=== PATIENT | male | born 1970 | race Caucasian/White ===

== ENCOUNTER 2021-06-20 02:02 | Emergency (ER) | payer OTHER, SELFPAY ==
[2021-06-20] VITALS (34 sets, daily range): BP systolic 102–140; BP diastolic 61–96; PULSE 59–85; RESP 8–18; TEMP 36.3; O2SAT 95–100
--- NOTE | 2021-06-20 02:00 | RT.EKG_ITS ---
APPROVED REPORT Exam: Resting ECG Reason for Exam: CHEST PAIN Patient Location: E HR:82 bpm ECG Measurements Heart Rate 82 AXIS VA 167 P 29 QRSd 81 QRS 7 QT 369 T 48 QTc 429 Conclusion Sinus rhythm...normal P axis, V-rate 60- 99 Atrial premature complexes...SV complexes w/ short R-R intvls [id number]: Rate 82, sinus rhythm with intermittent premature atrial complexes, no significant ST ellyn vation or depression. No STEMI
--- NOTE | 2021-06-20 02:14 | ED.GENADUL_ITS ---
Discharge Plan Disposition Patient Disposition: HOME Condition: Good Discharge Details Clinical Impression: Atrial premature contractions, Dysfunction of thyroid Primary Care Provider: Yuki,Local ED Provider: Andrae Magaña Home Meds and New Rx's Prescriptions: New atenolol 25 mg tablet 25 mg PO DAILY Qty: 30 RF: 0 Continued methimazole 20 mg Tablet 30 mg PO DAILY RF: 0 Discharge Instructions Instructions: Graves Disease (ED) Additional Instructions: At this time he is thankfully showed no evidence of thyroid storm. Your TSH level is elevated at 36.6, and your T4 level (which is your active thyroid metabolite) is slightly low at 0.69. Please follow-up closely with your primary care provider and [employer] for further titration and management of your thyroid medications. Please take the atenolol every day as directed to help manage your symptoms of palpitations. If you notice any worsening of your sy mptoms, or any new symptoms such as vomiting, diarrhea, fever, chills, shortness of breath, chest pain, numbness, weakness, or fainting , please return immediately to the emergency department for reevaluation. Please follow up with your primary care provider as soon as possible for reassessment and reevaluation. As always, it was a pleasure participating in your medical care today. Medical Decision Making This is a 50-year-old male with a past medical history of hyperthyroidism/Graves' disease no other significant medical problems who presents today for evaluation of palpitations. Patient states that for the last 2 to 3 days he has felt intermittent palpitations, worsening this evening. Patient has a history of Graves' disease, but has not had any laboratory work-up since the coronavirus pandemic began (essentially 1-1/2 years ago). He states that a few days ago he did drive back down to [place] and get routine blood work and was notable for his TSH level being very high. He is currently off here in [place] helping take care of family members. Patient has chronically been on methimazole, and is not on any other medications at this time. He denies any IV or illicit drug use. He does admit to drinking 1 beer much earlier this evening, but otherwise no other alcohol. He denies chest pain, chest tightness, chest heaviness, or shortness of breath. He denies any syncope, he denies any nausea, vomiting, or diarrhea. No dizziness or lightheadedness. No other complaints at this time. Of historical note the patient has had few episodes of thyroid storm in the past. Physical exam is unremarkable, EKG shows sinus rhythm with intermittent premature atrial complexes. No evidence of A. fib. No evidence of STEMI. Suspect this is likely related to his elevated thyroid function. We will gently rehydrate, get a laboratory work-up, monitor closely and reassess. At this time the patient does not demonstrate current evidence of an acute thyroid storm. Heart rate normal, minimally hypertensive, afebrile. 3:48 AM Laboratory work-up is returned, CBC normal, electrolytes normal, renal function good, troponin normal. EKG normal. Vital signs remained stable. TSH is elevated at 36, free T4 slightly low at 0.69. This is likely reflection of the effect of methimazole. Uncertain as to why the patient was having mild premature atrial contractions, but likely secondary to chronic sensitivity from thyroid dysfunction. We will start the patient on 25 mg of atenolol daily for palpitation symptom control. At this time no indication or evidence of thyroid storm requiring admission. Patient will likely need to have a slight decrease in his methimazole dose, and restarting of previously utilized levothyroxine as a small dose. Patient does have close follow-up with his PCP, and will contact his [employer] this week. At this time the patient remained stable. Discussed red flags for which to return. I have extensively reviewed the treatment plan and discharge instructions with the patient. I have addressed all patient concerns at this time. The patient was made aware of what symptoms to monitor for that would warrant a return to the emergency department. Discussed the plan with the patient, they demonstrate verbal understanding and agreement with our assessment and plan at this time. The documentation in this chart was dictated using [employer] dictation software. Please excuse any dictation errors. EKG 2: 07 Rate 82, sinus rhythm with intermittent premature atrial complexes, no significant ST elevation or depression. No STEMI HPI General Date/Time Provider Initiated Documentation: 06/20/21 02:03 . HPI Narrative: This is a 50-year-old male with a past medical history of hyperthyroidism/Graves' disease no other significant medical problems who prese nts today for evaluation of palpitations. Patient states that for the last 2 to 3 days he has felt intermittent palpitations, worsening this evening. Patient has a history of Graves' disease, but has not had any laboratory work-up since the coronavirus pandemic began (essentially 1-1/2 years ago). He states that a few days ago he did drive back down to [place] and get routine blood work and was notable for his TSH level being very high. He is currently off here in [place] helping take care of family members. Patient has chronically been on methimazole, and is not on any other medications at this time. He denies any IV or illicit drug use. He does admit to drinking 1 beer much earlier this evening, but otherwise no other alcohol. He denies chest pain, chest tightness, chest heaviness, or shortness of breath. He denies any syncope, he denies any nausea, vomiting, or diarrhea. No dizziness or lightheadedness. No other complaints at this time. Related Data Home Medications Medication Instructions Recorded Confirmed atenolol 25 mg PO DAILY #30 tab 06/20/21 methimazole 30 mg PO DAILY 06/20/21 06/20/21 Previous Rx's Medication Instructions Recorded atenolol 25 mg PO DAILY #30 tab 06/20/21 Allergies Allergy/AdvReac Type Severity Reaction Status Date / Time No Known Allergies Allergy Unverified 06/20/21 02:14 General Stated Complaint: Chest Pain DAVID: 2 Review of Systems All systems reviewed & are unremarkable except as noted in HPI and below PFSH Social History Smoking/Tobacco Use Status: Never Smoking risk assessment performed?: Yes Alcohol Intake: current Alcohol Intake frequency: a few times a month Substance use type: does not use Do you feel safe at home: Yes Do you feel safe in your relationship?: Yes Exam Narrative Exam Narrative: 1.Const: Well-nourished, Well-developed, appearing stated age 2.Eyes: PERRL, no conjunctival injection, and symmetrical lids. 3.ENT: Atraumatic external nose and ears. Moist MM. Neck: Symmetric, trachea midline, No thyromegaly. No goiter 4.CVS: +S1/S2, No murmurs or gallops. Peripheral pulses 2+ and equal in all extr emities. Brisk capillary refill in all extremities. 5.RESP: Unlabored respiratory effort. Clear to auscultation bilaterally. No wheezes rales or rhonchi 6.GI: Soft, Nontender/Nondistended, No hepatosplenomegaly. No guarding or rebound. 7.MSK: Normocephalic/Atraumatic, Extremities w/o deformity or ttp No cyanosis or clubbing, Normal movement of all extremities 8.Skin: Warm, Dry. No rashes or lesions. 9.Neuro: hooker off II-XII grossly intact. Sensation grossly intact, no focal neurologic deficits. 10.Psych: (AAO) x3. Appropriate mood and affect Course Vital Signs Vital signs: Vital Signs Temperature 36.3 C L 06/20/21 02:05 Pulse 80 06/20/21 02:05 Respiratory Rate 18 06/20/21 02:05 Blood Pressure 140/96 H 06/20/21 02:05 Pulse Oximetry 100 06/20/21 02:05 Temperature 36.3 C L 06/20/21 02:05 Temperature Source Temporal Artery Scan 06/20/21 02:05 Pulse 80 06/20/21 02:05 Respiratory Rate 18 06/20/21 02:05 Blood Pressure 140/96 H 06/20/21 02:05 Blood Pressure Position Sitting 06/20/21 02:05 Pulse Oximetry 100 06/20/21 02:05 Oxygen Delivery Method Room Air 06/20/21 02:05 Oxygen Flow Rate 0 06/20/21 02:05 Pain Level 0 06/20/21 02:05
[2021-06-20 02:23] LABS: Abs Immature Grans 0.02 10^3/uL (0.0-0.06); Absolute Basophil Count 0.05 10^3/uL (0.0-0.2); Absolute Eosinophil Count 0.17 10^3/uL (0.0-0.7); Absolute Lymphocyte Count 3.67 10^3/uL (1.2-3.4); Absolute Monocyte Count 0.69 10^3/uL (0.1-0.8); Absolute Neutrophil Count 3.65 10^3/uL (1.2-6.7); Basophils % 0.6; Eosinophils % 2.1; HCT 43.5 % (40.0-50.0); HGB 14.5 g/dL (13.5-17.5); Immature Grans % 0.2; Lymphocytes % 44.5; MCH 30.4 pg (27.0-33.0); MCHC 33.3 % (32.0-36.0); MCV 91.2 fL (80-95); MPV 8.9 fL (8.0-11.0); Monocytes % 8.4; Neutrophils % 44.2; Nucleated RBC 0 %; Platelet Count 265 10^3/uL (130-400); RBC 4.77 10^6/uL (4.36-5.78); RDW 11.6 % (11.8-14.1); RDW-SD 38.7 fL; WBC 8.25 10^3/uL (4.4-10.8)
[2021-06-20] MEDS: Normal Saline 1,000 ML 1000 ML IV (02:37)
[2021-06-20 02:38] LABS: ALT 24 U/L (16-63); AST 16 U/L (15-37); Albumin 4.1 g/dL (3.4-5.0); Alkaline Phosphatase 44 U/L (46-116); Anion Gap 5.8 mmol/L (3-11); BUN 23 mg/dL (7-18); Bilirubin, Total 0.3 mg/dL (0.2-1.0); CO2 29.2 mmol/L (21.0-32.0); CREATININE 1.1 mg/dL (0.70-1.30); Calcium 8.8 mg/dL (8.5-10.1); Chloride 106 mmol/L (98-107); Glucose 100 mg/dL (74-106); Sodium 141 mmol/L (136-145); Total Protein 7.5 g/dL (6.4-8.2)
[2021-06-20 02:46] LABS: Troponin I < 0.05 ng/mL (<0.06)
[2021-06-20 03:03] LABS: FREE T4 0.69 ng/dL (0.76-1.46)
[2021-06-20] MEDS: Atenolol 25 MG TAB PO (03:07)
--- NOTE | 2021-06-20 05:29 | NUR.NOTE ---
Ambulates to restroom; gait steady. Denies dizziness.Nursing Note:
== END 2021-06-20 05:40 | disposition home or self-care (01) ==
PROVIDERS: Emergency Provider Student in an Organized Health Care Education/Training Program
DX: I49.1 Atrial premature depolarization (principal); R07.9 Chest pain, unspecified; E05.90 Thyrotoxicosis, unspecified without thyrotoxic crisis or storm
CPT/HCPCS: 36415; 80053; 93005; 96360; 99284; 84439; 84443; 84484; 85025; 93010